=== PATIENT | male | born 1995 | race Caucasian/White ===

== ENCOUNTER 2020-02-27 12:14 | Emergency (ER) | payer SELFPAY ==
[~2020-02-27] VITALS: Ht 177.8 cm; Wt 81.8 kg
[2020-02-27 12:24] VITALS: TEMP 98.7
[2020-02-27] MEDS ORDERED: CEPHALEXIN500 M1 PO (14:01)
[2020-02-27] MEDS ORDERED: NORCO 325 MG-51 TAB PO (14:02)
[2020-02-27 14:58] VITALS: BP 114/69; PULSE 74
== END 2020-02-27 14:58 | disposition home or self-care (01) ==
LOC: COL.ER 12:14
DX: S60.552A Superficial foreign body of left hand, initial encounter (principal); W29.4XXA Contact with nail gun, initial encounter; Y92.59 Other trade areas as the place of occurrence of the external cause
CPT/HCPCS: J0690; J3010; Q4021